=== PATIENT | female | born 1945 | race Caucasian/White ===

== ENCOUNTER 2016-09-24 13:32 | Emergency (ER) | payer MEDICARE, BC ==
[2016-09-24] MEDS ORDERED: Cyclobenzaprine 10 MG Tab ONE (13:40)
[2016-09-24 14:55] VITALS: BP 144/74
--- NOTE | 2016-09-24 21:21 | EDM.PDOC ---
ED HPI GENERAL MEDICAL PROBLEM - General Chief Complaint: General Stated Complaint: HIP PAIN Time Seen by Provider: 09/24/16 14:10 Source of Information: Reports: Patient History Limitations: Reports: No Limitations - History of Present Illness INITIAL COMMENTS - FREE TEXT/NARRATIVE: According to patient she has been having right lower back pain for the past 2 days now. pain is intermittent, hurts when she twists or turns. most of the pain is localized to the right buttock. No radiation of pain. No tingling or numbness. No saddle numbness. No incontinence of urine or stool.Pt thinks she might have twisted her back. Onset: Gradual Onset Date: 09/22/16 Duration: Intermittent Location: Reports: Back Quality: Reports: Ache Severity: Moderate Improves with: Reports: None Worsens with: Reports: None Associated Symptoms: Denies: Confusion, Chest Pain, Cough, Diaphoresis, Fever/ Chills, Loss of Appetite, Nausea/Vomiting, Shortness of Breath, Weakness 8 Pain Score (Numeric/FACES): 8 - Related Data Allergies Allergy/AdvReac Type Severity Reaction Status Date / Time iodine Allergy Hives Verified 09/24/16 14:01 levofloxacin [From Levaquin] Allergy Respiratory Verified 09/24/16 14:01 Distress Home Meds: Home Meds Cholecalciferol (Vitamin D3) [Vitamin D3] 50,000 unit PO ASDIRECTED 02/20/13 [ History] Clopidogrel [Plavix] 75 mg PO DAILY 02/20/13 [History] DULoxetine [Cymbalta] 30 mg PO DAILY 02/20/13 [History] Fluticasone/Salmeterol [Advair 500-50] 1 puff INH BID 02/20/13 [History] Hydrochlorothiazide 25 mg PO DAILY 02/20/13 [History] Levothyroxine Sodium [Synthroid] 100 mcg PO DAILY 02/20/13 [History] Mometasone Furoate [Nasonex] 50 mcg NS DAILY 02/20/13 [History] Montelukast [Singulair] 10 mg PO DAILY 02/20/13 [History] Nebivolol [Bystolic] 10 mg PO TID 02/20/13 [History] Pregabalin [Lyrica] 50 mg PO QAM 02/20/13 [History] Rosuvastatin [Crestor] 10 mg PO DAILY 02/20/13 [History] buPROPion HCl [Wellbutrin Xl] 300 mg PO DAILY 02/20/13 [History] cloNIDine [cloNIDine HCl] 0.2 mg PO TID 02/20/13 [History] Pantoprazole Sodium [Protonix] 20 mg PO DAILY 09/24/16 [History] Pramipexole [Mirapex] 0.5 mg PO BEDTIME 09/24/16 [History] Pregabalin [Lyrica] 50 mg PO DAILY 09/24/16 [History] Pregabalin [Lyrica] 150 mg PO BEDTIME 09/24/16 [History] Tolterodine Tartrate [Detrol LA] 4 mg PO BEDTIME 09/24/16 [History] amLODIPine Besylate/Benazepril [Amlodipine-Benazepril 5-40 MG] 5 - 40 mg PO DAILY 09/24/16 [History] Past Medical History Musculoskeletal History: Reports: Back Pain, Chronic, Other (See Below) Other Musculoskeletal History: hx hip replacement 2009 at [place] and hx 2 slipped discs in back Social & Family History - Tobacco Use Years of Tobacco use: 20 Used Tobacco, but Quit: Yes Month Tobacco Last Used: May - Alcohol Use Days Per Week of Alcohol Use: 0 - Recreational Drug Use Recreational Drug Use: No ED ROS GENERAL - Review of Systems Review Of Systems: See Below Constitutional: Denies: Fever, Chills HEENT: Denies: Rhinitis, Sinus Problem, Throat Pain, Throat Swelling, Vision Change Respiratory: Denies: Shortness of Breath, Cough, Sputum Cardiovascular: Denies: Chest Pain, Lightheadedness GI/Abdominal: Denies: Abdominal Pain, Nausea, Vomiting : Denies: Dysuria, Flank Pain, Frequency Musculoskeletal: Reports: Back Pain. Denies: Joint Pain, Joint Swelling, Muscle Stiffness Skin: Denies: Pruritis, Rash Neurological: Denies: Numbness, Tingling, Weakness ED EXAM, GENERAL - Physical Exam Exam: See Below Exam Limited By: No Limitations General Appearance: Alert, WD/WN, No Apparent Distress Eye Exam: Bilateral Eye: EOMI, PERRL Ears: Normal External Exam, Normal Canal, Hearing Grossly Normal, Normal TMs Ear Exam: Bilateral Ear: Auricle Normal, Canal Normal, TM normal Nose: Normal Inspection, Normal Mucosa, No Blood Throat/Mouth: Normal Inspection, Normal Lips, Normal Teeth, Normal Gums, Normal Oropharynx, Normal Voice, No Airway Compromise Head: Atraumatic Neck: Normal Inspection, Supple, Non-Tender, Full Range of Motion Respiratory/Chest: No Respiratory Distress, Lungs Clear, Normal Breath Sounds, No Accessory Muscle Use, Chest Non-Tender Cardiovascular: Normal Peripheral Pulses, Regular Rate, Rhythm, No Edema, No Gallop, No JVD, No Murmur, No Rub Back Exam: Normal Inspection, Full Range of Motion, Paraspinal Tenderness ( right lower lumbar), Other (tender over the right SI joint to pressure). No: Vertebral Tenderness Extremities: Normal Inspection, Normal Range of Motion, Non-Tender, Normal Capillary Refill, No Pedal Edema Course - Vital Signs Text/Narrative:: Pt reassured that she has strained her right Si joint. Reassured that she is not having acute disc pain, which is her concern. Advised intermittent heat for 10 minutes 3-4 times dialy. Motrin 600mg 3 times daily with food. Flexeril 10 mg at bedtime. Avoid driving when on flexeril. Might benefit from physiotherapy. Pt to be scheduled for therapy on monday. requisition sent. Return to emergency room if symptoms worsen, other cat followup in clinic with PCP next week. Last Recorded V/S: Last Vital Signs Temp 98 F 09/24/16 14:52 Pulse 66 09/24/16 14:52 Resp 16 09/24/16 14:52 BP 144/74 H 09/24/16 14:52 Pulse Ox 98 09/24/16 14:52 Departure - Departure Time of Disposition: 14:30 Disposition: Home, Self-Care 01 Condition: good Clinical Impression: Sacroiliac strain - Discharge Information Instructions: Cyclobenzaprine tablets, Low Back Sprain With Rehab-SportsMed, Ibuprofen tablets and capsules, Heat Therapy, [id number] Referrals: PCP,None [Primary Care Provider] - Forms: ED Department Discharge Care Plan Goals: Take Flexaril (cyclobenzaprine) 10 mg bedtime for 7 days. Take ibuprofen 600mg (3 - 200mg tablets of over the counter) 3 x day, Moist heat to area 3 to 4 x day for 10 minutes. If PT does not call you be sure you call them to participate in physical therapy as directed per Dr. Ruiz. - Problem List & Annotations (1) Sacroiliac strain SNOMED Code(s): 093388481 Code(s): S39.012A - STRAIN OF MUSCLE, FASCIA AND TENDON OF LOWER BACK, INIT Status: Acute - Problem List Review Problem List Initiated/Reviewed/Updated: Yes - Assessment/Plan Assessment:: Right sacroiliac strain Plan: Pt reassured that she has strained her right Si joint. Reassured that she is not having acute disc pain, which is her concern. Advised intermittent heat for 10 minutes 3-4 times dialy. Motrin 600mg 3 times daily with food. Flexeril 10 mg at bedtime. Avoid driving when on flexeril. Might benefit from physiotherapy. Pt to be scheduled for therapy on monday. requisition sent. Return to emergency room if symptoms worsen, other cat followup in clinic with PCP next week.
== END 2016-09-24 14:40 | disposition home or self-care (01) ==
LOC: LB.ED 13:32
DX: S39.012A Strain of muscle, fascia and tendon of lower back, initial encounter (principal); Z88.8 Allergy status to other drugs, medicaments and biological substances; Z88.1 Allergy status to other antibiotic agents; Z79.899 Other long term (current) drug therapy; X58.XXXA Exposure to other specified factors, initial encounter
CPT/HCPCS: 99283; A9270

== ENCOUNTER → 2019-04-02 | Outpatient (CLI) | payer MEDICARE, BC ==
--- NOTE | 2019-04-02 11:50 | CR ---
Date of Service: 04/02/19 Clinical Data: S/P TOTAL RIGHT KNEE REPLACEMENT RIGHT KNEE: Comparison is made to a prior exam dated 03/04/19. The patient is status post right total knee arthroplasty. The prosthesis appears intact. There is a small joint effusion. No acute abnormalities. [id number] [facility]
== END ==
LOC: LB.DI 10:22
PROVIDERS: ATTEND Physician Assistant
DX: Z47.1 Aftercare following joint replacement surgery (principal); M25.461 Effusion, right knee; Z96.651 Presence of right artificial knee joint
CPT/HCPCS: 73562-RT